=== PATIENT | female | born 1980 | race American Indian/Alaskan Native ===

== ENCOUNTER 2021-09-25 12:48 | Emergency (ER) | payer MEDICAID ==
[2021-09-25 14:07] VITALS: BP 113/75
--- NOTE | 2021-09-25 14:39 | Emergency Department Report ---
ED General Adult HPI - General Chief complaint: Abdominal Pain Stated complaint: SIDE PAIN Time Seen by Provider: 09/25/21 14:24 Source: patient Mode of arrival: Ambulatory Limitations: No Limitations - History of Present Illness Initial comments: 41 year old femal present to ED with complaints of left flank pain and lower abd pain. Onset yesterday. She described pain as pulling pain and its dependent on how she moves. She states pain has been intermittent and about 3-4/10. 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 She denies any obvious injury. She reports associated urinary odor and urinary frequency but no hematuria or dysuria. She reports no vag discharge. Her lmc was 09/09/2021. She denies any associated nausea/vomiting, bowel changes, fever or chills. She reports no additional symptoms at this time. MD Complaint: left flank/lower abd pain -: days(s) (1) Severity scale (0 -10): 5 - Related Data Previous Rx's Medication Instructions Recorded Last Taken Type Ibuprofen [Motrin] 600 mg PO Q8H PRN #30 tablet 09/25/21 Unknown Rx Sulfamethoxazole/Trimethoprim 1 each PO BID #10 09/25/21 Unknown Rx [Bactrim DS TAB] metroNIDAZOLE [Flagyl] 500 mg PO Q12HR #14 tab 09/25/21 Unknown Rx Allergies Allergy/AdvReac Type Severity Reaction Status Date / Time No Known Allergies Allergy Verified 09/25/21 14:09 ED Review of Systems ROS: Stated complaint: SIDE PAIN Other details as noted in HPI Comment: All other systems reviewed and negative Constitutional: denies: chills, fever Eyes: denies: eye pain, eye discharge, vision change ENT: congestion. denies: ear pain, throat pain, dental pain, hearing loss, epistaxis Respiratory: denies: cough, shortness of breath, SOB with exertion, SOB at rest, wheezing Cardiovascular: denies: chest pain, palpitations Gastrointestinal: abdominal pain. denies: nausea, vomiting, diarrhea, constipation, hematemesis, melena, hematochezia Genitourinary: frequency, other (urinary odor ) Musculoskeletal: back pain (left flank pain ) Neurological: denies: headache, weakness, paresthesias Psychiatric: denies: anxiety, depression ED Past Medical Hx - Past Medical History Previous Medical History?: No - Surgical History Past Surgical History?: No - Social History Smoking Status: Never Smoker - Medications Home Medications: Home Medications Medication Instructions Recorded Confirmed Last Taken Type Ibuprofen [Motrin] 600 mg PO Q8H PRN #30 tablet 09/25/21 Unknown Rx Sulfamethoxazole/Trimethoprim 1 each PO BID #10 09/25/21 Unknown Rx [Bactrim DS TAB] metroNIDAZOLE [Flagyl] 500 mg PO Q12HR #14 tab 09/25/21 Unknown Rx ED Physical Exam - General Limitations: No Limitations General appearance: alert, in no apparent distress - Head Head exam: Present: atraumatic, normocephalic, normal inspection - Eye Eye exam: Present: normal appearance, PERRL, EOMI Pupils: Present: normal accommodation - Respiratory Respiratory exam: Present: normal lung sounds bilaterally. Absent: respiratory distress, wheezes, rales, rhonchi, stridor - Cardiovascular Cardiovascular Exam: Present: regular rate, normal rhythm, normal heart sounds - GI/Abdominal GI/Abdominal exam: Present: soft. Absent: distended, tenderness, guarding, rebound - Back Exam Back exam: Present: normal inspection, full ROM. Absent: tenderness, CVA tenderness (R), CVA tenderness (L) - Neurological Exam Neurological exam: Present: alert, oriented X3, CN II-XII intact, normal gait - Psychiatric Psychiatric exam: Present: normal affect, normal mood - Skin Skin exam: Present: intact ED Course Vital Signs 09/25/21 09/25/21 14:06 14:07 Temperature 98.6 F 98.6 F Pulse Rate 77 77 Respiratory 18 18 Rate Blood Pressure 113/75 Blood Pressure 113/75 [Right] O2 Sat by Pulse 98 98 Oximetry ED Medical Decision Making - Lab Data Laboratory Tests 09/25/21 Unknown Urine Color Straw Urine Turbidity Clear Urine pH 9.0 H Ur Specific [place] 1.010 Urine Protein <15 mg/dl Urine Glucose (UA) Neg Urine Ketones Neg Urine Blood Neg Urine Nitrite Neg Ur Reducing Substances Not Reportable Urine Bilirubin Neg Urine Ictotest Not Reportable Urine Urobilinogen < 2.0 Ur Leukocyte Esterase Mod Urine WBC (Auto) 5.0 Urine RBC (Auto) 1.0 U Epithel Cells (Auto) 13.0 Urine Bacteria (Auto) 1+ Urine HCG, Qual Negative - Medical Decision Making UA concerning for possible UTI. hCG negative. Patient will be started on antibiotics for UTI. She also be started on Flagyl for possible BV as well. Symptoms could also be related to musculoskeletal pain and she was given ibuprofen to help with. Patient is well-appearing, nontoxic and not in any si gnificant distress. She has been observed on her phone the entire time she been in the room. She ambulates well and her gait is normal. She is neurologically intact. She has a soft nontender abdomen. She has no CVA tenderness. Her vital signs are stable. Discussed results, suspected diagnoses and treatment plan with patient. She expressed understanding agree with plan. Patient was stable at time of discharge. Critical care attestation.: If time is entered above; I have spent that time in minutes in the direct care of this critically ill patient, excluding procedure time. ED Disposition Clinical Impression: Musculoskeletal pain, UTI (urinary tract infection) Disposition: 01 HOME / SELF CARE / HOMELESS Is pt being admited?: No Does the pt Need Aspirin: No Condition: Stable Instructions: Urinary Tract Infection, Adult, [id number], Musculoskeletal Pain, Abdominal Pain (ED) Additional Instructions: Take the motrin and the antibiotics as prescribed. Take the antibiotics with food and do not drink alcohol while taking flagyl. Increase your water intake. Follow up with your PCP. Return to ED if worse. Prescriptions: Sulfamethoxazole/Trimethoprim [Bactrim DS TAB] 1 each PO BID #10 metroNIDAZOLE [Flagyl] 500 mg PO Q12HR #14 tab Ibuprofen [Motrin] 600 mg PO Q8H PRN #30 tablet PRN Reason: Pain Referrals: NATALIE PORRAS MD [Staff Physician] - 3-5 Days Forms: Work/School Release Form(ED) Time of Disposition: 15:37
[2021-09-25 15:19] LABS: Bacteria,Urine 1+ /HPF (Negative)
[2021-09-25 15:28] LABS: Bilirubin,Urine NEG (Negative); Blood,Urine NEG (Negative); Color,Urine Straw (Yellow); Protein,Urine <15 mg/dL mg/dL (Negative); Urobilinogen,Urine < 2.0 mg/dL (<2.0)
[2021-09-25 15:29] LABS: HCG Qualitative,Urine Negative (Negative)
== END 2021-09-25 16:05 | disposition home or self-care (01) ==
LOC: ED 12:48
DX: N39.0 Urinary tract infection, site not specified (principal); M79.18 Myalgia, other site
CPT/HCPCS: 81001; 81025; 99283

== ENCOUNTER 2021-10-24 08:21 | Emergency (ER) | payer MEDICAID ==
[2021-10-24 11:01] LABS: Bilirubin,Urine NEG (Negative); Blood,Urine NEG (Negative); Color,Urine Straw (Yellow); Protein,Urine <15 mg/dL mg/dL (Negative); Urobilinogen,Urine < 2.0 mg/dL (<2.0)
[2021-10-24 11:05] LABS: HCG Qualitative,Urine Negative (Negative); RBC,Urine < 1.0 /HPF (0.0-6.0); WBC,Urine < 1.0 /HPF (0.0-6.0)
--- NOTE | 2021-10-24 11:10 | Emergency Department Report ---
ED N/V/D HPI - General Chief complaint: Nausea/Vomiting/Diarrhea Stated complaint: NAUSEA Time Seen by Provider: 10/24/21 09:44 Source: patient Mode of arrival: Ambulatory Limitations: No Limitations - History of Present Illness Initial comments: 41-year-old black female with no past medical history presents to the emergency department for evaluation of 1 week history of intermittent nausea vomiting and decreased appetite. She states that her symptoms have significantly improved but she decided to come here for evaluation. She states that she was treated about 2 weeks ago for UTI. She denies fever, abdominal pain, dysuria, and vaginal discharge. She states that she has not had any nausea or vomiting at all today. MD complaint: nausea, vomiting -: Gradual, week(s) (1) Associated Abdominal Pain: No Consistency: intermittent, now resolved Associated Symptoms: loss of appetite, nausea/vomiting. denies: myalgias, chest pain, cough, diaphoresis, fever/chills, headaches, malaise, rash, dysuria, shortness of breath, syncope, weakness - Related Data Previous Rx's Medication Instructions Recorded Last Taken Type Ibuprofen [Motrin] 600 mg PO Q8H PRN #30 tablet 09/25/21 Unknown Rx Sulfamethoxazole/Trimethoprim 1 each PO BID #10 09/25/21 Unknown Rx [Bactrim DS TAB] metroNIDAZOLE [Flagyl] 500 mg PO Q12HR #14 tab 09/25/21 Unknown Rx Ondansetron [Zofran Odt] 4 mg PO Q8HR #12 tab.rapdis 10/24/21 Unknown Rx Allergies Allergy/AdvReac Type Severity Reaction Status Date / Time No Known Allergies Allergy Verified 09/25/21 14:09 ED Review of Systems ROS: Stated complaint: NAUSEA Other details as noted in HPI Comment: All other systems reviewed and negative Constitutional: denies: chills, fever Respiratory: denies: cough, shortness of breath, SOB with exertion, SOB at rest Cardiovascular: denies: chest pain, palpitations, dyspnea on exertion, orthopnea, edema, syncope, paroxysmal nocturnal dyspnea Gastrointestinal: nausea, vomiting. denies: abdominal pain, diarrhea, hematemesis, melena, hematochezia Genitourinary: denies: urgency, dysuria, frequency, hematuria, discharge, abnormal menses Musculoskeletal: denies: back pain ED Past Medical Hx - Past Medical History Previous Medical History?: No - Surgical History Past Surgical History?: No - Social History Smoking Status: Never Smoker - Medications Home Medications: Home Medications Medication Instructions Recorded Confirmed Last Taken Type Ibuprofen [Motrin] 600 mg PO Q8H PRN #30 tablet 09/25/21 Unknown Rx Sulfamethoxazole/Trimethoprim 1 each PO BID #10 09/25/21 Unknown Rx [Bactrim DS TAB] metroNIDAZOLE [Flagyl] 500 mg PO Q12HR #14 tab 09/25/21 Unknown Rx Ondansetron [Zofran Odt] 4 mg PO Q8HR #12 tab.rapdis 10/24/21 Unknown Rx ED Physical Exam - General Limitations: No Limitations General appearance: alert, in no apparent distress - Head Head exam: Present: atraumatic, normocephalic - Eye Eye exam: Present: normal appearance. Absent: conjunctival injection - Neck Neck exam: Present: normal inspection. Absent: tenderness, lymphadenopathy - Respiratory Respiratory exam: Present: normal lung sounds bilaterally. Absent: respiratory distress, wheezes, rales, rhonchi, stridor, chest wall tenderness - Cardiovascular Cardiovascular Exam: Present: regular rate, normal heart sounds - GI/Abdominal GI/Abdominal exam: Present: soft, normal bowel sounds. Absent: distended, tenderness, guarding, rebound, rigid - Extremities Exam Extremities exam: Present: normal inspection, full ROM, normal capillary refill. Absent: tenderness, pedal edema, joint swelling, calf tenderness - Back Exam Back exam: Present: normal inspection. Absent: CVA tenderness (R), CVA tenderness (L), vertebral tenderness - Neurological Exam Neurological exam: Present: alert, oriented X3, normal gait - Psychiatric Psychiatric exam: Present: normal affect, normal mood - Skin Skin exam: Present: warm, dry, intact, normal color ED Course Vital Signs 10/24/21 10/24/21 10/24/21 08:42 10:00 11:32 Temperature 99.1 F 98.2 F 97.1 F L Pulse Rate 81 87 80 Respiratory 18 18 18 Rate Blood Pressure 132/76 141/65 Blood Pressure 131/78 [Right] O2 Sat by Pulse 100 99 97 Oximetry ED Medical Decision Making - Medical Decision Making 41-year-old black female with no past medical history presents to the emergency department for evaluation of 1 week history of intermittent nausea vomiting and decreased appetite. She states that her symptoms have significantly improved but she decided to come here for evaluation. She states that she was treated about 2 weeks ago for UTI. She denies fever, abdominal pain, dysuria, and vaginal discharge. She states that she has not had any nausea or vomiting at all today. No gross abnormalities noted on exam. Urine negative for UTI and . Patient without any symptoms at this time. Patient will be discharged home with prescription for Zofran to use as needed. She is advised to follow-up with primary care provider for worsening symptoms. She verbalized understanding of and agreement with plan of care. Critical care attestation.: If time is entered above; I have spent that time in minutes in the direct care of this critically ill patient, excluding procedure time. ED Disposition Clinical Impression: Nausea Disposition: 01 HOME / SELF CARE / HOMELESS Is pt being admited?: No Does the pt Need Aspirin: No Condition: Stable Instructions: Nausea, Adult, [id number] Additional Instructions: Take medications as prescribed follow-up primary care provider if no improvement or worsening symptoms. Prescriptions: Ondansetron [Zofran Odt] 4 mg PO Q8HR #12 tab.rapdis Referrals: TUAN HIGGINBOTHAM MD [Staff Physician] - 3-5 Days Forms: Work/School Release Form(ED) Time of Disposition: 11:09
[2021-10-24 11:34] VITALS: BP 131/78
== END 2021-10-24 11:34 | disposition home or self-care (01) ==
LOC: ED 08:21
DX: R11.2 Nausea with vomiting, unspecified (principal)
CPT/HCPCS: 81001; 81025; 99282; 99283